=== PATIENT | male | born 1965 | race Caucasian/White ===

== ENCOUNTER 2016-08-23 | Emergency (ER) | payer OTHER | END 2016-08-23 15:30 | disposition home or self-care (01) | DX: T65.891A Toxic effect of other specified substances, accidental (unintentional), initial encounter (principal); T23.69 Corrosion of second degree of multiple sites of wrist and hand; Y93.89 Activity, other specified; Y92.69 Other specified industrial and construction area as the place of occurrence of the external cause; Y99.0 Civilian activity done for income or pay; Z23 Encounter for immunization | CPT/HCPCS: 90471; 90714; 99283 ==